=== PATIENT | female | born 2000 | race Two or more races ===

== ENCOUNTER 2021-03-02 12:03 | Inpatient (IN) ==
[2021-03-02 13:49] LABS: Bilirubin,Urine Negative (Negative); Blood, Urine Large mg/dL (Negative); Glucose,Urine (UA) Negative (Negative); Ketones,Urine Negative (Negative); Mucus,Urine Many /LPF (Occasional); Nitrite,Urine Negative (Negative); Protein,Urine 100 MG/DL; RBC,Urine 179 /HPF (0-4); Squamous Epithelial Cell,Urine Many /HPF (0-10); Urine Appearance CLOUDY (Clear); Urine Color Yellow (Yellow); Urine Specific Gravity 1.016 (1.001-1.035); Urine Urobilinogen < 2.0 EU/DL (0.2-1.0)
[2021-03-02] MEDS: LACTATED RINGERS 1,000 ML IV SCH ×2 (14:43→23:44)
[2021-03-02] MEDS ORDERED: BUTORPHANOL 2 MG/ML VIAL IV PRN (14:54)
[2021-03-02] MEDS ORDERED: miSOPROStoL 200 MCG TABLET VAG PRN (14:54)
[2021-03-02] MEDS ORDERED: LACTATED RINGERS 250 ML IV ONE (14:54)
[2021-03-02] MEDS ORDERED: CARBOPROST TROMETHAMINE 250 MCG/ML AMP IM PRN (14:54)
[2021-03-02] MEDS ORDERED: LIDOCAINE 1% 50 ML VIAL MISC INJ ONE (14:54)
[2021-03-02] MEDS ORDERED: ONDANSETRON 4 MG/2 ML VIAL IV PRN (14:54)
[2021-03-02] MEDS ORDERED: OXYTOCIN/LR 20 UNIT/1,000 ML BAG IV SCH (15:00)
[2021-03-02 15:20] LABS: Basophils % 0.3 % (0.0-0.8); Eosinophils # 0.1 10*3/uL (0.0-0.87); Eosinophils % 0.5 % (0.00-10.9); Hematocrit 38.8 VOL% (35.7-47.0); Hemoglobin 12.8 GM/DL (12.0-16.0); Immature Granulocytes % 0.4 %; Immature Granulocytes Absolute 0.05 #; Lymphocytes # 1.9 10*3/uL (1.4-4.0); Lymphocytes % 15.4 % (21.3-54.2); Mean Corpuscular Volume 81.9 FL (87-102); Mean Platelet Volume 11.6 FL (9.6-12.0); Monocytes % 5.5 % (1.7-12.7); Neutrophils % 77.9 % (38.7-73.9); Platelet Count 247 T/CUMM (130-400); Red Blood Count 4.74 MC/CUMM (3.8-5.5); White Blood Count 12.3 T/CUMM (4-12)
[2021-03-02] MEDS ORDERED: AMPICILLIN INJ 2,000 MG in SODIUM CHLORIDE 0.9% 100 ML IV ONE (18:31)
[2021-03-02 19:01] LABS: INR 0.9; Partial Thromboplastin Time 28.7 SECS (23.9-33.8)
[2021-03-02 19:08] LABS: Alanine Aminotransferase 12 U/L (13-56); Albumin 2.6 G/DL (3.4-5.0); Alkaline Phosphatase 142 U/L (45-117); Aspartate Amino Transferase 11 U/L (0-37); Bilirubin,Total < 0.39 MG/DL (0.20-1.00); Blood Urea Nitrogen 9 MG/DL (7-18); Calcium 8.4 MG/DL (8.5-10.1); Carbon Dioxide 24 MMOL/L (21-32); Estimated Glom Filtration Rate 152 ML/MIN; Glucose 95 MG/DL (74-106); Osmolality,Calculated 271.8 MOS/KG (273-304); Potassium 3.9 MMOL/L (3.5-5.1); Sodium 137 MMOL/L (136-145); Total Protein 7.2 G/DL (6.4-8.2); Uric Acid 5.5 MG/DL (2.6-6.0)
[2021-03-02 20:00] LABS: Protein/Creatinine Ratio,Urine 0.6 RATIO
[2021-03-02] MEDS: AMPICILLIN INJ 1,000 MG in SODIUM CHLORIDE 0.9% 100 ML IV SCH (22:39)
[2021-03-02] MEDS: MEPERIDINE 50 MG/1 ML VIAL IV PRN (22:39)
[2021-03-03] MEDS: MEPERIDINE 50 MG/1 ML VIAL IV PRN ×2 (01:10→03:07)
[2021-03-03] MEDS: AMPICILLIN INJ 1,000 MG in SODIUM CHLORIDE 0.9% 100 ML IV SCH ×3 (03:06→11:02)
[2021-03-03] MEDS ORDERED: FAMOTIDINE 20 MG/2 ML VIAL IV ONE (05:55)
[2021-03-03] MEDS ORDERED: LACTATED RINGERS 1,000 ML IV ONE (05:55)
[2021-03-03] MEDS ORDERED: ePHEDrine 50 MG/ML VIAL IV PRN (05:55)
[2021-03-03] MEDS ORDERED: CITRIC ACID/SODIUM CITRATE 30 ML UDCUP PO ONE (05:55)
[2021-03-03] MEDS ORDERED: miSOPROStoL 200 MCG TABLET ONE (05:57)
[2021-03-03] MEDS ORDERED: OXYTOCIN/LR 20 UNIT/1,000 ML BAG IV ONE ×2 (05:57→13:55)
[2021-03-03] MEDS ORDERED: TRANEXAMIC ACID 1,000 MG/10 ML VIAL ONE ×2 (05:57→12:15)
[2021-03-03] MEDS ORDERED: METHYLERGONOVINE 0.2 MG/1 ML AMP ONE (05:57)
[2021-03-03] MEDS ORDERED: CARBOPROST TROMETHAMINE 250 MCG/ML AMP IM ONE (05:58)
[2021-03-03] MEDS ORDERED: fentaNYL 2 MCG/ROPIV 0.2% EPID 100 ML EPIDURAL SCH (06:30)
[2021-03-03 08:36] LABS: Bacteria,Urine Occasional /HPF (Few); Bilirubin,Urine Negative (Negative); Blood, Urine Small mg/dL (Negative); Glucose,Urine (UA) Negative (Negative); Ketones,Urine 80 mg/dL (Negative); Mucus,Urine Moderate /LPF (Occasional); Nitrite,Urine Negative (Negative); Protein,Urine 100 MG/DL; RBC,Urine 2 /HPF (0-4); Squamous Epithelial Cell,Urine Occasional /HPF (0-10); Urine Appearance CLEAR (Clear); Urine Color Amber (Yellow); Urine Specific Gravity 1.029 (1.001-1.035); Urine Urobilinogen < 2.0 EU/DL (0.2-1.0)
[2021-03-03] MEDS: LACTATED RINGERS 1,000 ML IV SCH (09:18)
[2021-03-03] MEDS ORDERED: LIDOCAINE 1% 50 ML VIAL ONE (12:14)
[2021-03-03] MEDS ORDERED: SODIUM CHLORIDE 0.9% 0 ML IV ONE (12:15)
[2021-03-03 13:57] LABS: Cord Arterial Blood HCO3 16.6 MMOL/L
[2021-03-03 13:58] LABS: Cord Venous Blood HCO3 22.4 MMOL/L; Cord Venous Blood PCO2 57.2 MMHG; Cord Venous Blood PO2 22.9 MMHG
[2021-03-03] MEDS: LABETALOL 100 MG TABLET PO SCH ×2 (15:47→21:21)
[2021-03-03] MEDS: DOCUSATE SODIUM 100 MG CAPSULE PO SCH (20:05)
[2021-03-03] MEDS: IBUPROFEN 800 MG TABLET PO PRN (20:05)
[2021-03-03] MEDS ORDERED: BENZOCAINE 20%/MENTHOL 0.5% SPRAY 56 GM CAN TOP PRN (22:59)
[2021-03-04] MEDS: IBUPROFEN 800 MG TABLET PO PRN ×2 (06:03→20:34)
[2021-03-04 06:27] LABS: Basophils % 0.2 % (0.0-0.8); Eosinophils # 0.1 10*3/uL (0.0-0.87); Eosinophils % 0.8 % (0.00-10.9); Immature Granulocytes % 0.5 %; Immature Granulocytes Absolute 0.06 #; Lymphocytes # 2.5 10*3/uL (1.4-4.0); Lymphocytes % 20.1 % (21.3-54.2); Mean Corpuscular HGB Conc 32.4 GM/DL (32-36); Mean Platelet Volume 11.5 FL (9.6-12.0); Neutrophils % 72.4 % (38.7-73.9); Platelet Count 227 T/CUMM (130-400); Red Cell Distribution Width 13.5 % (9.3-17.3); White Blood Count 12.3 T/CUMM (4-12)
[2021-03-04] MEDS: DOCUSATE SODIUM 100 MG CAPSULE PO SCH ×2 (09:16→20:34)
[2021-03-04] MEDS: LABETALOL 100 MG TABLET PO SCH ×2 (09:30→20:34)
[2021-03-05] MEDS: LABETALOL 100 MG TABLET PO SCH (08:37)
[2021-03-05] MEDS: DOCUSATE SODIUM 100 MG CAPSULE PO SCH (08:37)
[2021-03-05] MEDS: IBUPROFEN 800 MG TABLET PO PRN (08:37)
[2021-03-05 08:57] VITALS: BP 135/83
== END 2021-03-05 13:25 | disposition home or self-care (01) | DRG 560 ==
LOC: N.LDOUT 12:03 → N.LD 12:04 → N.OB 03-03 18:42
PROVIDERS: ADMIT Obstetrics & Gynecology; ATTEND Obstetrics & Gynecology